=== PATIENT | female | born 1955 | race Hispanic/Latino ===

== ENCOUNTER 2017-02-16 08:24 | Outpatient (CLI) | payer OTHER ==
[2017-02-16 10:27] LABS: Bilirubin Negative (Negative); Blood, Urine Negative (Negative); Glucose, Urine (Dipstick) Negative (Negative); Ketone, Urine Negative (Negative); Nitrite Negative (Negative); Protein, Urine (Dipstick) Negative (Neg-Trace); Urobilinogen 0.2 mg/dL (0.2-1.0)
[2017-02-16 10:37] LABS: #Basophils 0.1 thou/uL (0.0-0.2); #Eosinphils 0.1 thou/uL (0.0-0.7); #Lymphocytes 2.7 thou/uL (1.20-3.40); #Monocytes 0.6 thou/uL (0.11-0.59); #Neutrophils 3.3 thou/uL (1.40-6.50); %Basophils 1.5 % (0.0-1.0); %Eosinophils 0.8 % (0.0-10.0); %Lymphocytes 40.3 % (21.0-51.0); %Monocytes 8.5 % (0.0-10.0); Bacteria/HPF None Seen HPF (None Seen); Hematocrit 42.3 % (36.0-47.0); Hyaline Casts/LPF 0-3 HYALINE CAST LPF (0-3 Hyaline); Mean Platelet Volume 7.2 fL (7.4-10.4); Red Blood Cell (RBC) Count 4.17 mill/uL (4.20-5.40); Squamous Epithelial None Seen HPF (0-3); WBC/HPF 0-3 HPF (0-3); White Blood Cell (WBC) Count 6.7 thou/uL (4.8-10.8)
[2017-02-16 10:46] LABS: Anion Gap 10 mmol/L (10-20); BUN (Urea Nitrogen) 13 mg/dL (9.8-20.1); Calc. Creatinine Clearance 0 mL/min (70-130); Calcium 9.9 mg/dL (7.8-10.44); Carbon Dioxide 31 mmol/L (23-31); Chloride 102 mmol/L (98-107); Estimated GFR-MDRD 74
--- NOTE | 2017-02-16 11:09 | RAD ---
TWO VIEW CHEST: History: Pre-operative evaluation. FINDINGS: The lungs are clear. Heart and mediastinum appear unremarkable. Osseous structures unremarkable. IMPRESSION: Unremarkable chest. POS: [facility]
[2017-02-16 11:14] LABS: PTT 28.9 SEC (22.9-36.1); Prothrombin Time 12.8 SEC (12.0-14.7)
== END 2017-02-16 08:25 | disposition home or self-care (01) ==
LOC: LABBT 08:24
PROVIDERS: ATTEND Orthopaedic Surgery
DX: Z01.818 Encounter for other preprocedural examination (principal); M16.11 Unilateral primary osteoarthritis, right hip
CPT/HCPCS: 71020; 80048; 81001; 85025; 85610; 85730; 86850; 86900; 86901; 87081; 93005; 93010

== ENCOUNTER 2017-02-16 08:30 | Inpatient (IN) | payer OTHER ==
[2017-02-16 08:59] VITALS: BMI 26.5
[2017-02-23] MEDS ORDERED: CEFAZOLIN/Water 2 GM/20 ML SYRINGE ONE (10:12)
[2017-02-23] MEDS ORDERED: Tranexamic Acid 1,000 MG/100 ML BAG ONE (10:12)
[2017-02-23] MEDS ORDERED: Ondansetron HCl/PF 4 MG/2 ML Vial ONE (11:11)
[2017-02-23] MEDS ORDERED: Glycopyrrolate 0.2 MG/ML 5 ML SYRINGE ONE (11:11)
[2017-02-23] MEDS ORDERED: Propofol 200 MG/20 ML VIAL ONE (11:11)
[2017-02-23] MEDS ORDERED: Lidocaine 1% PF 5 ML VIAL ONE (11:11)
[2017-02-23] MEDS ORDERED: Midazolam HCl 2 mg/2 ml Vial ONE (12:17)
[2017-02-23] MEDS ORDERED: Fentanyl 100 MCG/2 ML VIAL ONE (12:17)
[2017-02-23] MEDS ORDERED: Ondansetron HCl/PF 4 MG/2 ML Vial IVP PRN ×2 (12:45→12:53)
[2017-02-23] MEDS ORDERED: HYDROcodone/Acetaminophen 5/325 mg Tablet PO PRN (12:45)
[2017-02-23] MEDS ORDERED: Naloxone HCl 0.4 mg/ml Vial IV PRN (12:45)
[2017-02-23] MEDS ORDERED: Promethazine HCl 25 MG SUPP PR PRN (12:45)
[2017-02-23] MEDS ORDERED: traMADol HCl 50 MG TAB PO PRN ×3 (12:45→12:53)
[2017-02-23] MEDS ORDERED: Zolpidem Tartrate 5 MG TAB PO PRN ×2 (12:45→12:53)
[2017-02-23] MEDS ORDERED: diphenhydrAMINE 25 MG CAP PO PRN ×2 (12:45→12:53)
[2017-02-23] MEDS ORDERED: Bupivacaine 0.25% 10 ML VIAL EPIDURAL PRN (12:45)
[2017-02-23] MEDS ORDERED: Fentanyl/Bupivacaine 250 ML in Premix Bag 1 BAG EPIDURAL SCH (12:45)
[2017-02-23] MEDS ORDERED: diphenhydrAMINE 50 MG/ML VIAL IM PRN (12:45)
[2017-02-23] MEDS ORDERED: Eucerin (Mineral Oil/Petrolatum,White) 30 gm Jar TOP PRN (12:45)
[2017-02-23] MEDS ORDERED: Naloxone HCl 0.4 mg/ml Vial IVP PRN (12:45)
[2017-02-23] MEDS ORDERED: diphenhydrAMINE 50 MG/ML VIAL IVP PRN (12:45)
[2017-02-23] MEDS ORDERED: Promethazine HCl 25 MG/ML VIAL IM PRN ×2 (12:45→12:53)
[2017-02-23] MEDS ORDERED: Fentanyl 100 MCG/2 ML VIAL SLOW IVP PRN ×2 (12:53)
[2017-02-23] MEDS ORDERED: HYDROcodone/Acetaminophen 10/325 mg Tablet PO PRN ×2 (12:53)
[2017-02-23] MEDS ORDERED: Acetaminophen 325 MG TAB PO PRN (12:53)
[2017-02-23] MEDS ORDERED: Bupivacaine/Epinephrine 0.25% 30 ML VIAL ONE (13:22)
[2017-02-23] MEDS ORDERED: Ketorolac Tromethamine 30 MG/ML VIAL IM SCH (14:00)
--- NOTE | 2017-02-23 15:08 | OP ---
PREOPERATIVE DIAGNOSIS: Degenerative joint disease of right hip. POSTOPERATIVE DIAGNOSIS: Degenerative joint disease of right hip. SURGEON: Suhas Hopper M.D. PLATING ENGINEER: Hayden Golden PA-C. BLOOD LOSS: 200 mL. SPECIMEN: None. DRAINS: None. COMPLICATIONS: None. IMPLANTS USED: [place] Accolade #2 stem, -2.5x36 ceramic head, a 50 mm PSL cup with a 36 mm X3 liner . PROCEDURE IN DETAIL: After informed consent was obtained in the preoperative holding area, the patie nt was taken to the operative suite where general anesthesia was induced. The patient was then posit ioned in the lateral decubitus position. The hip was then prepped and draped in usual sterile fashio n. The patient received preoperative antibiotics. Prior to incision, time-out was called and all me mbers of the surgical team agreed upon site, surgeon, and patient. After this, a longitudinal incisi on was made directly over the trochanter, noted by palpation extending 2 fingerbreadths above and bel ow the trochanter. The deeper subcutaneous layer was undermined with Bovie electrocautery. The ilio tibial band was encountered and incised sharply and the plane below this was developed bluntly. A arnley retractor was placed to hold this opened. The lateral aspect of the trochanter and the abduct or muscles were encountered and then reflected anteriorly off the trochanter using Bovie electrocaute ry. Once this was completed, the anterior capsule was then encountered and identified and copious ca psulotomy was carried out, exposing the femoral neck and head. Dislocation maneuver was then performe d and an in situ provisional neck cut was then made using the oscillating saw. Attention was then tu rned to acetabular preparation and sequential reaming was carried out up to the appropriate diameter and a trial was then malleted into place with good firm resistance and no pullout. The permanent lisandro tabular shell was then malleted squarely into place, as was the appropriate liner. Once completed, t he wound was copiously irrigated and attention was then turned to femoral preparation. Flexion and ex ternal rotation was performed of the exposed thigh and femoral elevators were then placed at the prox imal aspect of the wound. Canal finder was used to establish the length of the canal and sequential reaming was carried out, followed by broaching. Once the appropriate stability was established with the trial broaches with both flexion, extension and rotational stability, we did trial with neutral a nd 2 mm offset incremental necks. Once the appropriate size was decided upon, with good stability no demetrius with flexion, extension, internal and external rotation and shuck being negative, we removed the femoral trial broach and malletted into place the permanent prosthesis with good firm fit, which was also stable to rotation. Again, the hip felt very stable to flexion, extension, internal and externa l rotation. Leg lengths appeared near anatomic clinically and we were quite happy with prosthesis pl acement. Copious irrigation was then carried out through the entirety of the wound. Primary closure of the abductors was accomplished with interrupted #2 Vicryl upoair-dj-grrdy stitches and the IT ban d was then closed with interrupted #2 Vicryl, oversewn with a #2 running barbed Quill stitch. Subcut aneous fascia was closed with running barbed Quill stitch and a subcuticular Monocryl barbed Quill st itch was used for skin closure and augmented with skin cement. A sterile dressing was applied. The p rocedure was terminated without any complication. All counts were correct. The patient was awakened in the operative suite and taken to the recovery room in stable condition.
[2017-02-23] MEDS ORDERED: Ketorolac Tromethamine 30 MG/ML VIAL ONE (15:14)
--- NOTE | 2017-02-23 16:02 | RAD ---
RIGHT HIP TWO VIEWS: History: Hip replacement. FINDINGS/IMPRESSION: There are post op changes of total hip arthroplasty in good position and alignment. POS: [facility]
[2017-02-23] MEDS: Ketorolac Tromethamine 30 MG/ML VIAL IVP SCH ×2 (17:28→21:17)
[2017-02-23] MEDS: Sodium Chloride 0.9% 1,000 ML IV SCH ×2 (17:28→21:20)
[2017-02-23] MEDS ORDERED: CEFAZOLIN/Water 2 GM/20 ML SYRINGE SLOW IVP SCH (18:00)
[2017-02-23] MEDS ORDERED: traMADol HCl 50 MG TAB PO SCH (21:00)
[2017-02-23] MEDS ORDERED: [UNRECOGNIZED DRUG - OTHER] PO SCH (21:00)
[2017-02-23] MEDS: Zolpidem Tartrate 5 MG TAB PO SCH (21:17)
[2017-02-23] MEDS: Aspirin 325 MG TAB PO SCH (21:17)
[2017-02-23] MEDS: CEFAZOLIN/Water 2 GM/20 ML SYRINGE SLOW IVP SCH (21:18)
--- NOTE | 2017-02-23 22:21 | CON-2 ---
DATE OF CONSULTATION: 02/23/2017 ADMITTING ATTENDING: Suhas Hopper M.D. CONSULTING TEAM: [facility]. RESIDENT: Lee Barboza D.O. ATTENDING: Abundio Okeefe M.D. PRIMARY CARE PHYSICIAN: Brigitte Rob M.D CODE STATUS: FULL. HISTORIAN: Patient and partner. CHIEF COMPLAINT: Consults of medical management. HISTORY OF PRESENT ILLNESS: This is a 61-year-old female admitted for total right hip arthroplasty d ue to her osteoarthritis, which performed today by Dr. Hopper. Please see his dictated note for deta ils. [facility] was consulted for medical management. The patient reports her pain is well controlled. She denies headache, dizziness, chest pain, dyspnea, abdominal pain, na usea, vomiting, and diarrhea. PAST MEDICAL HISTORY: Significant for, 1. Osteoarthritis. 2. ADD. 3. Anxiety. PAST SURGICAL HISTORY: 1. Left shoulder surgery. 2. Right knee replacement. 3. Back surgery. 4. Neck surgery. 5. Knee arthroscopy. 6. Shoulder arthroscopy. ALLERGIES: No known drug allergies. HOME MEDICATIONS: 1. Duloxetine, patient reports 30 mg p.o. daily, but 60 mg p.o. daily was started by ortho team, so this may be the appropriate dose, we will med rec. 2. Adderall 30 mg p.o. q.a.m. and 10 mg p.o. q.p.m. 3. Lidocaine patch 5% p.r.n. 4. Ambien 10 mg p.o. at bedtime. FAMILY HISTORY: Significant for mother with hypothyroidism. SOCIAL HISTORY: The patient has got some wine in her supper but otherwise very little alcohol use. She does not smoke and she has no history of drug use. She is an technical support consultant for the [address] Marital status: The patient has a partner. REVIEW OF SYSTEMS: GENERAL: Negative for fevers, chills, weight change, appetite change, sleep change, night sweats. EYES: Negative for vision changes or eye pain. ENT: Negative for nasal congestion, rhinorrhea, sore throat. RESPIRATORY: Negative for cough, congestion, shortness of breath, exercise intolerance. CARDIOVASCULAR: Negative for chest pain, palpitations, edema, PND, orthopnea. GI: Negative for nausea, vomiting, diarrhea, constipation, abdominal pain, GI bleeding. : Negative for incontinence, dysuria, polyuria. SKIN: Negative for rashes, lesions. MUSCULOSKELETAL: Pain well controlled, positive for arthritis. NEUROLOGIC: Negative for weakness, numbness, syncope, seizure. PSYCHIATRIC: Negative for anxiety, depression, suicidal ideation. PHYSICAL EXAMINATION: VITAL SIGNS: Blood pressure 118/59, pulse 82, respiratory rate 18, T-max 97.5, pulse oximetry 100% o n room air, current weight 65.7 kilograms. GENERAL: The patient is alert and oriented x4, no apparent distress. Well-developed and appropriate ly interactive. EYES: PERRLA, EOMI. Conjunctivae within normal limits. ENT: Tympanic membranes pearly bedolla without bulging or erythema. Nasal mucosa within normal limits. Oropharynx within normal limits. NECK: Supple, with no lymphadenopathy, thyromegaly, or bruit. CARDIOVASCULAR: Regular rate and rhythm, no murmurs, rubs or gallops auscultated. Radial and pedal pulses are palpable and equal bilaterally. RESPIRATORY: Normal effort, no retractions. Clear to auscultation bilaterally. SKIN: Warm, dry with no cyanosis or lesions. ABDOMEN: Soft, nontender to palpation. Bowel sounds positive x4, no masses or distention. EXTREMITIES: No clubbing, cyanosis or edema. MUSCULOSKELETAL: Structure within normal limits. Tone within normal limits, bulky dressing is appli ed to right hip. NEURO: No focal deficits. Sensation is within normal limits. Deep tendon reflexes 2+/4. Cranial n erves II through XII intact. GCS 15. PSYCHIATRIC: Mood and affect appropriate. IMAGING: Right hip x-ray shows arthroplasty in good position. LABORATORY DATA: None available at this time. ASSESSMENT AND PLAN: This is a 61-year-old female, who presents with: 1. Osteoarthritis of the right hip, status post total right hip replacement, admitted to Dr. Hopper. Pain well controlled, agree with primary team's management. We appreciate the opportunity to parti cipate in her care. Check hemogram in a.m. Continue PT and OT. 2. Anxiety. Continue home duloxetine as ordered. 3. Attention deficit disorder. Continue home Adderall as ordered. 4. Code status: FULL. 5. Diet: Regular. 6. Activity: Weightbearing as tolerated per Orthopedics orders. 7. Deep venous thrombosis prophylaxis, sequential compression devices. Disposition and length of stay, 2 days. Symptomatic medications will be provided. History and physical exam as well as management were discussed with Dr. Okeefe, who is in agreement wit h the plan as listed above.
[2017-02-24] MEDS: Ketorolac Tromethamine 30 MG/ML VIAL IVP SCH ×4 (03:14→21:54)
[2017-02-24] MEDS: HYDROcodone/Acetaminophen 5/325 mg Tablet PO PRN ×3 (03:16→17:05)
[2017-02-24] MEDS: CEFAZOLIN/Water 2 GM/20 ML SYRINGE SLOW IVP SCH (05:32)
[2017-02-24 06:17] LABS: Hematocrit 32.5 % (36.0-47.0); Mean Platelet Volume 7.1 fL (7.4-10.4); White Blood Cell (WBC) Count 9.9 thou/uL (4.8-10.8)
[2017-02-24] MEDS: Ferrous Gluconate 324 MG TAB PO SCH ×2 (08:09→17:18)
--- NOTE | 2017-02-24 08:12 | PDOC.FM ---
- Subjective Subjective: Patient is s/p right high replacement day 1. She is seen conversing with her mother. She has not been out of bed or had BM yet, but has urinated and has good appetite. She states she is filling well with no complaint. She was started on her home adderall and duolextine today. - Objective Vital Signs & Weight: Vital Signs (12 hours) Temp Pulse Resp BP Pulse Ox 02/24/17 03:50 98.7 F 97 16 121/77 98 02/24/17 00:05 98.6 F 87 16 117/72 99 02/23/17 20:55 98.5 F 88 18 134/79 99 Weight Weight 65.771 kg I&O: 02/23/17 02/24/17 02/25/17 06:59 06:59 06:59 Intake Total 860 Output Total 1125 Balance -265 Result Diagrams: 02/24/17 05:13 <Anmol Dueñas M - Last Filed: 02/24/17 09:21> - Objective Vital Signs & Weight: Vital Signs (12 hours) Temp Pulse Resp BP Pulse Ox 02/24/17 08:00 98.7 F 97 16 97 02/24/17 07:40 98.6 F 78 16 115/74 97 02/24/17 03:50 98.7 F 97 16 121/77 98 02/24/17 00:05 98.6 F 87 16 117/72 99 Weight Weight 65.771 kg I&O: 02/23/17 02/24/17 02/25/17 06:59 06:59 06:59 Intake Total 860 Output Total 1125 Balance -265 Result Diagrams: 02/24/17 05:13 <Cory Bernal A - Last Filed: 02/24/17 11:35> Phys Exam - Physical Examination Constitutional: NAD HEENT: moist MMs Neck: supple Respiratory: no wheezing, no rales, no rhonchi, clear to auscultation bilateral Cardiovascular: RRR, no significant murmur Gastrointestinal: soft, non-tender, no distention, positive bowel sounds Musculoskeletal: no edema Neurological: non-focal, moves all 4 limbs Psychiatric: normal affect <Anmol Dueñas M - Last Filed: 02/24/17 09:21> Dx/Plan (1) Status post total hip replacement, right Code(s): Z96.641 - PRESENCE OF RIGHT ARTIFICIAL HIP JOINT Status: Acute Plan: 02/24: Patient pain is currently well controlled. Will follow up with surgery recs. (2) ADD (attention deficit disorder) Code(s): F98.8 - OTH BEHAV/EMOTN DISORD W ONSET USLY OCCUR IN CHLDHD AND ADOL Status: Acute Plan: 02/24: Patient has ADD and takes adderall at home. Will continue home medication. (3) Anxiety Code(s): F41.9 - ANXIETY DISORDER, UNSPECIFIED Status: Acute Plan: 02/24: Will continue patient home duloxetine. (4) Macrocytic anemia Code(s): D53.9 - NUTRITIONAL ANEMIA, UNSPECIFIED Status: Acute Plan: 02/24: Patient asymptomatic with incidental anemia. Plan to advise patient to follow up with PCP for full work up. This is new compared to previous lab. <Anmol Dueñas - Last Filed: 02/24/17 09:21> Attending Addendum - Attending Addendum I personally evaluated the patient and discussed the management with Dr. Dueñas. I agree with the History, Examination, Assessment and Plan documented above with any addition or exceptions noted below. <Cory Bernal - Last Filed: 02/24/17 11:35>
[2017-02-24] MEDS ORDERED: DEXTROAMPHETAMINE PO SCH ×2 (09:00)
[2017-02-24] MEDS ORDERED: AMPHETAMINE PO SCH ×2 (09:00)
[2017-02-24] MEDS: Aspirin 325 MG TAB PO SCH ×2 (09:44→20:14)
[2017-02-24] MEDS: Senokot S 8.6-50 MG TAB PO SCH ×2 (09:44→20:14)
[2017-02-24] MEDS: Multivitamin W/ Minerals 1 TAB PO SCH (09:45)
[2017-02-24] MEDS: Sodium Chloride 0.9% 1,000 ML IV SCH ×2 (17:07→18:06)
[2017-02-24] MEDS: Zolpidem Tartrate 5 MG TAB PO SCH (20:14)
[2017-02-25] MEDS ORDERED: Fentanyl/Bupivacaine 250 ML in Premix Bag 1 BAG EPIDURAL SCH (02:30)
[2017-02-25] MEDS: Ketorolac Tromethamine 30 MG/ML VIAL IVP SCH ×2 (05:41→11:56)
[2017-02-25] MEDS: Sodium Chloride 0.9% 1,000 ML IV SCH ×2 (05:53→13:30)
[2017-02-25 06:06] LABS: Hematocrit 31.2 % (36.0-47.0); Mean Platelet Volume 7.2 fL (7.4-10.4); Red Blood Cell (RBC) Count 3.05 mill/uL (4.20-5.40); White Blood Cell (WBC) Count 8.1 thou/uL (4.8-10.8)
[2017-02-25 08:40] VITALS: BP 112/74; TEMP 98.2
[2017-02-25] MEDS: Ferrous Gluconate 324 MG TAB PO SCH (09:23)
[2017-02-25] MEDS: Aspirin 325 MG TAB PO SCH (09:23)
[2017-02-25] MEDS: Senokot S 8.6-50 MG TAB PO SCH (09:23)
[2017-02-25] MEDS: Multivitamin W/ Minerals 1 TAB PO SCH (09:23)
--- NOTE | 2017-02-25 09:31 | PDOC.FM ---
- Subjective Subjective: Patient states she feels well, pain is tolerable, she has been out of bed, is passing gas, urinating without issue, and tolerating PO intake. She was started on ferrous sulfate yesterday as she did have anemia based on yesterday am lab. - Objective MAR Reviewed: Yes Vital Signs & Weight: Vital Signs (12 hours) Temp Pulse Resp BP BP Pulse Ox 02/25/17 08:00 98.2 F 88 16 112/74 97 02/25/17 04:51 98.4 F 80 17 125/78 95 02/25/17 00:47 98.2 F 86 16 113/69 95 02/25/17 00:00 98.2 F 86 16 113/69 95 Weight Admit Weight 65.771 kg Weight 65.771 kg I&O: 02/24/17 02/25/17 02/26/17 06:59 06:59 06:59 Intake Total 860 Output Total 1125 1150 Balance -265 -1150 Result Diagrams: 02/25/17 05:41 <Anmol Dueñas - Last Filed: 02/25/17 09:29> - Objective Vital Signs & Weight: Vital Signs (12 hours) Temp Pulse Resp BP Pulse Ox 02/25/17 08:00 98.2 F 88 16 112/74 96 Weight Admit Weight 65.771 kg Weight 65.771 kg I&O: 02/24/17 02/25/17 02/26/17 06:59 06:59 06:59 Intake Total 860 700 Output Total 1125 2350 Balance -265 -4800 Result Diagrams: 02/25/17 05:41 <Annabella Layne - Last Filed: 02/25/17 17:27> Phys Exam - Physical Examination Constitutional: NAD HEENT: moist MMs Neck: no nodes, no JVD, supple Respiratory: no wheezing, no rales, no rhonchi, clear to auscultation bilateral Cardiovascular: RRR, no significant murmur, no rub Gastrointestinal: soft, non-tender, no distention, positive bowel sounds Musculoskeletal: no edema Neurological: non-focal, moves all 4 limbs Lymphatic: no nodes Psychiatric: normal affect Skin: no rash Deviation from normal: Clean appearing right hip incision. <Anmol Dueñas - Last Filed: 02/25/17 09:29> Dx/Plan (1) Status post total hip replacement, right Code(s): Z96.641 - PRESENCE OF RIGHT ARTIFICIAL HIP JOINT Status: Acute Plan: 02/24: Patient pain is currently well controlled. Will follow up with surgery recs. 02/25: Pain controlled. Follow up with surg recs. (2) ADD (attention deficit disorder) Code(s): F98.8 - OTH BEHAV/EMOTN DISORD W ONSET USLY OCCUR IN CHLDHD AND ADOL Status: Acute Plan: 02/24: Patient has ADD and takes adderall at home. Will continue home medication. 02/25: Continue home med. Patient reports no issues with med. (3) Anxiety Code(s): F41.9 - ANXIETY DISORDER, UNSPECIFIED Status: Acute Plan: 02/24: Will continue patient home duloxetine. 02/25: Continue with duloxetine. patient reports no issues. (4) Macrocytic anemia Code(s): D53.9 - NUTRITIONAL ANEMIA, UNSPECIFIED Status: Acute Plan: 02/24: Patient asymptomatic with incidental anemia. Plan to advise patient to follow up with PCP for full work up. This is new compared to previous lab. 02/25: At this time, patient was started on ferrous sulfate by surgery. Counseling was done today with patient on following up with PCP to discuss her macrocytic anemia. She is not symptomatic, no SOB, dizziness or syncope,. <Anmol Dueñas - Last Filed: 02/25/17 09:29> Attending Addendum - Attending Addendum I personally evaluated the patient and discussed the management with Dr. Dueñas I agree with the History, Examination, Assessment and Plan documented above with any addition or exceptions noted below. pod#2 s/p R total hip replacement Stable medical conditions <Annabella Layne - Last Filed: 02/25/17 17:27>
[2017-02-25] MEDS: HYDROcodone/Acetaminophen 5/325 mg Tablet PO PRN (11:57)
== END 2017-02-25 15:40 | disposition home or self-care (01) | DRG 470 ==
LOC: SJJU 02-23 09:01 → SURG B 02-23 17:41
PROVIDERS: ADMIT Orthopaedic Surgery; ATTEND Orthopaedic Surgery
PROC: 0SRC0JA Replacement of Right Knee Joint with Synthetic Substitute, Uncemented, Open Approach (ICD-10-PCS; principal; 2017-02-23)
DX: M16.11 Unilateral primary osteoarthritis, right hip (principal); D53.9 Nutritional anemia, unspecified; F41.9 Anxiety disorder, unspecified; F98.8 Other specified behavioral and emotional disorders with onset usually occurring in childhood and adolescence
CPT/HCPCS: 36415; 85027; G8978-GP-CK; G8979-GP-CJ; G8987-GO-CJ; G8988-GO-CI; J1885; J2001; J2250; J2405; J2704; J3010; J3370

== ENCOUNTER 2017-10-05 08:20 | Outpatient (CLI) | payer OTHER | END 2017-10-05 08:21 | disposition home or self-care (01) | LOC: BICMAMMO 08:20 | PROVIDERS: ATTEND Family Medicine | DX: Z12.31 Encounter for screening mammogram for malignant neoplasm of breast (principal) | CPT/HCPCS: 77063; 77067 ==

== ENCOUNTER 2018-10-26 08:31 | Outpatient (CLI) | payer OTHER ==
--- NOTE | 2018-10-26 10:11 | MMO ---
Bilateral MAMMO Bilat Screen [facility]. CLINICAL HISTORY: Patient is 62 years old and is seen for screening. The patient has no family history of breast cancer. The patient has no personal history of cancer. VIEWS: The views performed were: bilateral craniocaudal with tomosynthesis and bilateral mediolateral oblique with tomosynthesis. FILMS COMPARED: The present examination has been compared to prior imaging studies performed at [facility] on 09/05/2014, 09/13/2015, 10/01/2016 and 10/05/2017. MAMMOGRAM FINDINGS: There are scattered fibroglandular densities. There are no suspicious masses, suspicious calcifications, or new areas of architectural distortion. IMPRESSION: THERE IS NO MAMMOGRAPHIC EVIDENCE OF MALIGNANCY. A ROUTINE FOLLOW-UP MAMMOGRAM IN 1 YEAR IS RECOMMENDED. THE RESULTS OF THIS EXAM WERE SENT TO THE PATIENT. ACR BI-RADS Category 1 - Negative MAMMOGRAPHY NOTE: 1. A negative mammogram report should not delay a biopsy if a dominant of clinically suspicious mass is present. 2. Approximately 10% to 15% of breast cancers are not detected by mammography. 3. Adenosis and dense breasts may obscure an underlying neoplasm. Reported by: KARIS LUNA MD Electonically Signed: [id number]
== END 2018-10-26 08:32 | disposition home or self-care (01) ==
LOC: BICMAMMO 08:31
PROVIDERS: ATTEND Family Medicine
DX: Z12.31 Encounter for screening mammogram for malignant neoplasm of breast (principal)
CPT/HCPCS: 77063; 77067

== ENCOUNTER 2019-01-25 06:56 | Outpatient (CLI) | payer OTHER ==
--- NOTE | 2019-01-25 07:58 | ULT ---
EXAM: US Abdominal CLINICAL HISTORY: Abdominal pain. COMPARISON: None. FINDINGS: Pancreas: Suboptimal evaluated IVC: Visualized IVC has a normal caliber. Aorta: Visualized aorta has a normal caliber. Liver:Normal hepatic parenchymal echotexture. No hepatic masses or intrahepatic biliary dilatation. T he contour of the hepatic margins maintained. Right hepatic lobe measures 12.9 cm Gallbladder: No sonographic evidence of cholelithiasis, gallbladder wall thickening or pericholecysti c fluid. Jones's sign:Negative CBD: 0.4 cm common bile duct diameter Portal vein: Patent. Appropriate directional flow. Right kidney: Normal cortical echotexture. No hydronephrosis. Right kidney measuring 8.0 x 5.4 x 4.7 cm in length. Left kidney: Normal cortical echotexture. No hydronephrosis . Left kidney measuring 9.4 x 4.2 x 4.3 cm in length Spleen: 8.3 cm. Normal echotexture. IMPRESSION: Unremarkable exam.
== END 2019-01-25 06:57 | disposition home or self-care (01) ==
LOC: BICULT 06:56
PROVIDERS: ATTEND Internal Medicine
DX: R10.33 Periumbilical pain (principal); R11.0 Nausea
CPT/HCPCS: 93975